=== PATIENT | female | born 1955 | race Caucasian/White ===

== ENCOUNTER 2025-05-10 16:35 | Emergency (ER) | payer MEDICARE, OTHER ==
[~2025-05-10] VITALS: Ht 152.4 cm; Wt 77.1 kg
[2025-05-10 16:44] VITALS: O2SAT 97
[2025-05-10 16:56] LABS: PLATELET COUNT (AUTO) 199 K/uL (179-408); RED BLOOD CELL COUNT(AUTO) 4.80 MIL/uL (3.63-4.92); RED CELL DISTRIBUTION WIDTH 14.8 % (12.3-17.7); WHITE BLOOD COUNT (AUTO) 8.2 K/uL (3.8-11.8)
[2025-05-10 17:03] LABS: CREATININE 0.9 mg/dL (0.6-1.3); SODIUM SERUM 138 mmol/L (136-145); UREA NITROGEN, BLOOD 17 mg/dL (7-18)
[2025-05-10] MEDS ORDERED: KETOROLAC TROMETHAMINE 15 MG INJ ONE (17:12)
[2025-05-10] MEDS: KETOROLAC TROMETHAMINE 15 MG INJ IM ONE (17:20)
[2025-05-10] MEDS ORDERED: NAPR-1009 PO (17:25)
[2025-05-10] MEDS ORDERED: LIDO30AD10 TP (17:25)
[2025-05-10] MEDS: LIDOCAINE 5% PATCH TD ONE (17:44)
[2025-05-10] MEDS ORDERED: CYCL5TAB PO (17:51)
== END 2025-05-10 18:02 | disposition home or self-care (01) ==
LOC: ER 16:35
DX: M25.522 Pain in left elbow (principal); M79.602 Pain in left arm; R07.89 Other chest pain; E03.9 Hypothyroidism, unspecified; E11.9 Type 2 diabetes mellitus without complications; E78.5 Hyperlipidemia, unspecified; J45.909 Unspecified asthma, uncomplicated; I10 Essential (primary) hypertension
CPT/HCPCS: 99285; 93971; 71045; 80048; 85025; 84484; 36415; 73080; 93005; 96372; J1885; A4606; A4663